=== PATIENT | male | born 1945 | race Caucasian/White ===

== ENCOUNTER 2021-08-03 17:39 | Inpatient (IN) ==
[2021-08-03] MEDS ORDERED: Furosemide 40 MG/4 ML VIAL IVP ONE (19:50)
[2021-08-03 20:30] LABS: Basophils # 0.1 K/mcL (0.0-0.2); Basophils % 0.2 %; Hematocrit 38.8 % (37.5-50.1); Hemoglobin 13.1 g/dL (12.9-16.9); Immature Granulocytes % 2.5 % (0-4); Lymphocytes # 1.5 K/mcL (0.6-4.6); Lymphocytes % 6.4 %; Mean Corpuscular HGB Conc 33.8 g/dL (31.6-35.5); Mean Corpuscular Hemoglobin 31.8 pg (28.0-33.3); Mean Corpuscular Volume 94.2 fL (83.0-100.0); Mean Platelet Volume 9.9 fL (9.4-12.4); Monocytes # 2.1 K/mcL (0.0-1.3); Monocytes % 9.1 %; Neutrophils # 18.6 K/mcL (1.6-8.9); Platelet Count 252 K/mcL (140-400); Red Blood Count 4.12 M/mcL (4.19-5.50); Red Cell Distribution Width 13.1 % (11.5-14.5); Segmented Neutrophils % 81.8 %; White Blood Count 22.7 K/mcL (4.3-11.1)
[2021-08-03 20:46] LABS: Alanine Aminotransferase 19 Units/L (7-52); Albumin 3.7 g/dL (3.5-5.7); Albumin/Globulin Ratio 1.1 (1.1-2.2); Alkaline Phosphatase 86 Units/L (34-104); Aspartate Amino Transferase 24 Units/L (13-39); BUN/Creatinine Ratio 25 (6-26); Bilirubin,Direct 1.4 mg/dL (0.0-0.2); Bilirubin,Indirect 1.6 mg/dL (0.0-1.0); Blood Urea Nitrogen 23 mg/dL (8-23); Calcium 9.2 mg/dL (8.6-10.3); Carbon Dioxide 30 mEq/L (23-29); Chloride 97 mEq/L (98-107); Globulin 3.5 g/dL (2.4-3.5); Glucose 169 mg/dL (70-105); Magnesium 1.7 mg/dL (1.6-2.6); Osmolality,Calculated 290 (280-300); Sodium 136 mEq/L (136-145); Total Protein 7.2 g/dL (6.4-8.9); Troponin I 0.03 ng/mL (< 0.04); eGFR For African Americans > 60 (> 60); eGFR For Non-African Americans > 60 (> 60)
[2021-08-03 21:40] LABS: Amorphous Sediment,Urine Few per hpf (None-Few); Bacteria,Urine Few per hpf (None-Few); Bilirubin,Urine Negative (Negative); Blood,Urine Small (Negative); Clarity,Urine Clear (Clear); Color,Urine Yellow (Yellow); Glucose,Urine (UA) Normal (Normal); Ketones,Urine Negative (Negative); Leukocyte Esterase,Urine Negative (Negative); Mucus,Urine Few per lpf (None-Few); Nitrite,Urine Negative (Negative); Protein,Urine 50 mg/dL (Neg-Trace); Specific Gravity,Urine 1.017 (1.010-1.025); Squamous Epithelial Cell,Urine Few per hpf (None-Few)
[2021-08-03 21:46] LABS: Influenza A PCR Negative (Negative); Influenza B PCR Negative (Negative); Resp. Syncytial Virus PCR Negative (Negative); SARS-CoV-2 by PCR (In House) Negative (Negative)
[2021-08-03] MEDS ORDERED: Piperacillin/Tazobactam 3.375 GM in Water for inj. (sterile) 20 ML IVP ONE (22:05)
[2021-08-03] MEDS ORDERED: Naloxone 0.4 MG/ML INJ IVP PRN (22:24)
[2021-08-03] MEDS ORDERED: Ondansetron 4 MG/2 ML VIAL IVP PRN (22:37)
[2021-08-03] MEDS ORDERED: *HR* Promethazine 25 MG/ML VIAL IM PRN (22:37)
[2021-08-03] MEDS ORDERED: Melatonin 3 MG TABLET PO PRN (22:37)
[2021-08-03] MEDS ORDERED: Vancomycin 1,750 MG/517.5 ML IV.SOLN IVPB ONE (23:00)
[2021-08-04 06:15] LABS: Basophils % 0.2 %; Eosinophils # 0.1 K/mcL (0.0-0.6); Eosinophils % 0.3 %; Hematocrit 36.7 % (37.5-50.1); Hemoglobin 12.4 g/dL (12.9-16.9); Immature Granulocytes % 2.9 % (0-4); Lymphocytes # 1.6 K/mcL (0.6-4.6); Lymphocytes % 8.5 %; Mean Corpuscular HGB Conc 33.8 g/dL (31.6-35.5); Mean Corpuscular Volume 94.6 fL (83.0-100.0); Monocytes # 1.8 K/mcL (0.0-1.3); Monocytes % 9.6 %; Neutrophils # 14.3 K/mcL (1.6-8.9); Platelet Count 212 K/mcL (140-400); Red Blood Count 3.88 M/mcL (4.19-5.50); Red Cell Distribution Width 13.1 % (11.5-14.5); Segmented Neutrophils % 78.5 %; White Blood Count 18.2 K/mcL (4.3-11.1)
[2021-08-04 06:28] LABS: Prothrombin Time 22.1 Seconds (9.4-12.1)
[2021-08-04 06:34] LABS: BUN/Creatinine Ratio 26 (6-26); Blood Urea Nitrogen 21 mg/dL (8-23); Calcium 8.9 mg/dL (8.6-10.3); Carbon Dioxide 30 mEq/L (23-29); Chloride 100 mEq/L (98-107); Glucose 150 mg/dL (70-105); Magnesium 1.7 mg/dL (1.6-2.6); Osmolality,Calculated 288 (280-300); Potassium 3.5 mEq/L (3.5-5.1); Sodium 136 mEq/L (136-145); eGFR For African Americans > 60 (> 60); eGFR For Non-African Americans > 60 (> 60)
[2021-08-04] MEDS ORDERED: Perflutren Lipid Microsphere 1.3 ML in 0.9 % Sodium Chloride 8.7 ML IVP PRN (08:09)
[2021-08-04] MEDS ORDERED: *HR* OxyCODONE Immed Rel 5 MG TABLET PO PRN (08:10)
[2021-08-04] MEDS: Vitamin B Complex/Vit C/Vit E 1 EACH TABLET PO SCH (08:17)
[2021-08-04] MEDS: Furosemide 40 MG/4 ML VIAL IVP SCH ×2 (08:17→18:18)
[2021-08-04] MEDS: Thiamine (B-1) 100 MG TABLET PO SCH (08:17)
[2021-08-04] MEDS: Piperacillin/Tazobactam 3.375 GM in 0.9 % Sodium Chloride Mini Bag 100 ML IVPB SCH ×2 (08:17→18:20)
[2021-08-04] MEDS: Folic Acid 1 MG TABLET PO SCH (08:17)
[2021-08-04] MEDS: Metoprolol XL (24 HR) Succ 50 MG TAB.ER.24H PO SCH (08:40)
[2021-08-04] MEDS: Aspirin Enteric Coated 81 MG Tablet PO SCH (08:40)
[2021-08-04] MEDS: Vancomycin 1,500 MG/265 ML IV.SOLN IVPB SCH ×2 (13:16→23:02)
[2021-08-04] MEDS ORDERED: tiZANidine 4 MG TABLET PO PRN (13:55)
[2021-08-04] MEDS ORDERED: *HR* Warfarin 5 MG TABLET PO SCH (14:00)
[2021-08-04] MEDS: [UNRECOGNIZED DRUG - OTHER] IT SCH (16:18)
[2021-08-04] MEDS ORDERED: Warfarin perPT PO PRN (18:00)
[2021-08-04] MEDS ORDERED: *HR* Warfarin 5 MG TABLET PO ONE (18:00)
[2021-08-05] MEDS: Piperacillin/Tazobactam 3.375 GM in 0.9 % Sodium Chloride Mini Bag 100 ML IVPB SCH ×3 (00:45→17:26)
[2021-08-05 03:05] LABS: Basophils % 0.2 %; Eosinophils # 0.1 K/mcL (0.0-0.6); Eosinophils % 0.7 %; Hematocrit 35.9 % (37.5-50.1); Hemoglobin 12.2 g/dL (12.9-16.9); Immature Granulocytes % 1.5 % (0-4); Lymphocytes # 1.8 K/mcL (0.6-4.6); Lymphocytes % 10.3 %; Mean Corpuscular Hemoglobin 32.1 pg (28.0-33.3); Mean Corpuscular Volume 94.5 fL (83.0-100.0); Monocytes # 1.6 K/mcL (0.0-1.3); Monocytes % 9.3 %; Neutrophils # 13.8 K/mcL (1.6-8.9); Platelet Count 260 K/mcL (140-400); Red Cell Distribution Width 12.7 % (11.5-14.5); White Blood Count 17.7 K/mcL (4.3-11.1)
[2021-08-05 03:20] LABS: BUN/Creatinine Ratio 22 (6-26); Blood Urea Nitrogen 15 mg/dL (8-23); C-Reactive Protein 268 mg/L (Less than 10); Calcium 8.4 mg/dL (8.6-10.3); Carbon Dioxide 26 mEq/L (23-29); Chloride 98 mEq/L (98-107); Glucose 127 mg/dL (70-105); Magnesium 1.5 mg/dL (1.6-2.6); Osmolality,Calculated 282 (280-300); Phosphorous 3.1 mg/dL (2.7-4.5); Potassium 3.3 mEq/L (3.5-5.1); Sodium 135 mEq/L (136-145); eGFR For African Americans > 60 (> 60); eGFR For Non-African Americans > 60 (> 60)
[2021-08-05 03:25] LABS: INR 2.2
[2021-08-05] MEDS: Furosemide 40 MG/4 ML VIAL IVP SCH ×2 (09:56→17:26)
[2021-08-05] MEDS: Folic Acid 1 MG TABLET PO SCH (09:57)
[2021-08-05] MEDS: Metoprolol XL (24 HR) Succ 50 MG TAB.ER.24H PO SCH (09:57)
[2021-08-05] MEDS: Vitamin B Complex/Vit C/Vit E 1 EACH TABLET PO SCH (09:57)
[2021-08-05] MEDS: Aspirin Enteric Coated 81 MG Tablet PO SCH (09:58)
[2021-08-05] MEDS: Thiamine (B-1) 100 MG TABLET PO SCH (09:58)
[2021-08-05] MEDS: Vancomycin 1,500 MG/265 ML IV.SOLN IVPB SCH ×2 (13:52→22:40)
[2021-08-05] MEDS: [UNRECOGNIZED DRUG - OTHER] IT SCH (13:53)
[2021-08-05] MEDS ORDERED: *HR* Warfarin 4 MG TABLET PO ONE (18:00)
[2021-08-05] MEDS: Acetaminophen 325 MG TABLET PO PRN (23:03)
[2021-08-06] MEDS: Piperacillin/Tazobactam 3.375 GM in 0.9 % Sodium Chloride Mini Bag 100 ML IVPB SCH ×3 (00:56→17:04)
[2021-08-06 02:44] LABS: Basophils # 0.1 K/mcL (0.0-0.2); Basophils % 0.3 %; Eosinophils # 0.1 K/mcL (0.0-0.6); Eosinophils % 0.7 %; Hematocrit 37.6 % (37.5-50.1); Hemoglobin 12.9 g/dL (12.9-16.9); Immature Granulocytes % 1.4 % (0-4); Lymphocytes # 2.3 K/mcL (0.6-4.6); Lymphocytes % 12.2 %; Mean Corpuscular HGB Conc 34.3 g/dL (31.6-35.5); Mean Corpuscular Hemoglobin 32.3 pg (28.0-33.3); Mean Corpuscular Volume 94.2 fL (83.0-100.0); Mean Platelet Volume 9.8 fL (9.4-12.4); Monocytes # 2.1 K/mcL (0.0-1.3); Monocytes % 10.9 %; Neutrophils # 14.2 K/mcL (1.6-8.9); Platelet Count 318 K/mcL (140-400); Red Blood Count 3.99 M/mcL (4.19-5.50); Red Cell Distribution Width 12.7 % (11.5-14.5); Segmented Neutrophils % 74.5 %
[2021-08-06 02:53] LABS: INR 3.1; Prothrombin Time 33.9 Seconds (9.4-12.1)
[2021-08-06 02:57] LABS: BUN/Creatinine Ratio 18 (6-26); Blood Urea Nitrogen 14 mg/dL (8-23); Calcium 8.5 mg/dL (8.6-10.3); Carbon Dioxide 25 mEq/L (23-29); Chloride 97 mEq/L (98-107); Glucose 145 mg/dL (70-105); Magnesium 1.4 mg/dL (1.6-2.6); Osmolality,Calculated 281 (280-300); Phosphorous 2.9 mg/dL (2.7-4.5); Potassium 3.3 mEq/L (3.5-5.1); Sodium 134 mEq/L (136-145); eGFR For African Americans > 60 (> 60); eGFR For Non-African Americans > 60 (> 60)
[2021-08-06 02:58] LABS: Albumin 3.5 g/dL (3.5-5.7); Albumin/Globulin Ratio 1.1 (1.1-2.2); Bilirubin,Direct 0.8 mg/dL (0.0-0.2); Bilirubin,Total 1.8 mg/dL (0.3-1.0); Globulin 3.2 g/dL (2.4-3.5); Total Protein 6.7 g/dL (6.4-8.9)
[2021-08-06] MEDS: Furosemide 40 MG/4 ML VIAL IVP SCH ×2 (08:31→17:04)
[2021-08-06] MEDS: Thiamine (B-1) 100 MG TABLET PO SCH (08:33)
[2021-08-06] MEDS: Vitamin B Complex/Vit C/Vit E 1 EACH TABLET PO SCH (08:33)
[2021-08-06] MEDS: Aspirin Enteric Coated 81 MG Tablet PO SCH (08:34)
[2021-08-06] MEDS: Folic Acid 1 MG TABLET PO SCH (08:34)
[2021-08-06] MEDS: Metoprolol XL (24 HR) Succ 50 MG TAB.ER.24H PO SCH (08:36)
[2021-08-06] MEDS: Acetaminophen 325 MG TABLET PO PRN (11:39)
[2021-08-06] MEDS: Vancomycin 1,500 MG/265 ML IV.SOLN IVPB SCH ×2 (13:24→22:22)
[2021-08-06] MEDS: [UNRECOGNIZED DRUG - OTHER] IT SCH (13:25)
[2021-08-06] MEDS ORDERED: *HR* Warfarin 2 MG TABLET PO ONE (18:00)
[2021-08-06 20:45] LABS: Estimated Average Glucose 154 mg/dl
[2021-08-07] MEDS: Piperacillin/Tazobactam 3.375 GM in 0.9 % Sodium Chloride Mini Bag 100 ML IVPB SCH ×2 (00:11→10:32)
[2021-08-07 04:49] LABS: Basophils # 0.1 K/mcL (0.0-0.2); Basophils % 0.3 %; Eosinophils # 0.2 K/mcL (0.0-0.6); Eosinophils % 1.5 %; Hematocrit 34.7 % (37.5-50.1); Hemoglobin 11.6 g/dL (12.9-16.9); Immature Granulocytes % 1.3 % (0-4); Lymphocytes # 1.8 K/mcL (0.6-4.6); Lymphocytes % 11.9 %; Mean Corpuscular HGB Conc 33.4 g/dL (31.6-35.5); Mean Corpuscular Hemoglobin 31.1 pg (28.0-33.3); Mean Platelet Volume 9.4 fL (9.4-12.4); Monocytes # 1.8 K/mcL (0.0-1.3); Monocytes % 11.9 %; Platelet Count 303 K/mcL (140-400); Red Blood Count 3.73 M/mcL (4.19-5.50); Red Cell Distribution Width 12.7 % (11.5-14.5); Segmented Neutrophils % 73.1 %; White Blood Count 15.1 K/mcL (4.3-11.1)
[2021-08-07 05:03] LABS: INR 4.1
[2021-08-07 05:08] LABS: Calcium 8.2 mg/dL (8.6-10.3); Magnesium 1.7 mg/dL (1.6-2.6); Phosphorous 3.7 mg/dL (2.7-4.5); Potassium 3.4 mEq/L (3.5-5.1)
[2021-08-07 05:15] LABS: Prothrombin Time 44.7 Seconds (9.4-12.1)
[2021-08-07] MEDS ORDERED: Furosemide 40 MG TABLET PO SCH (08:00)
[2021-08-07] MEDS: Folic Acid 1 MG TABLET PO SCH (10:33)
[2021-08-07] MEDS: Aspirin Enteric Coated 81 MG Tablet PO SCH (10:34)
[2021-08-07] MEDS: Vitamin B Complex/Vit C/Vit E 1 EACH TABLET PO SCH (10:34)
[2021-08-07] MEDS: Thiamine (B-1) 100 MG TABLET PO SCH (10:34)
[2021-08-07] MEDS: Metoprolol XL (24 HR) Succ 50 MG TAB.ER.24H PO SCH (10:34)
[2021-08-07] MEDS: Acetaminophen 325 MG TABLET PO PRN (10:47)
[2021-08-07 12:06] LABS: Uric Acid 6.3 mg/dL (2.3-7.6)
[2021-08-07] MEDS ORDERED: 0.9 % Sodium Chloride 1,000 ML IVC SCH (12:15)
[2021-08-07] MEDS ORDERED: D5% in Water 1,000 ML IVC PRN (12:43)
[2021-08-07] MEDS ORDERED: *HR* Dextrose 50 % in Water (Syg) 50 ML SYRINGE IVP PRN (12:43)
[2021-08-07] MEDS ORDERED: Dextrose Gel 15 GM/37.5 ML TUBE PO PRN ×2 (12:43)
[2021-08-07] MEDS: Insulin LISPRO 300 UNITS/3 ML VIAL SUBQ SCH ×3 (14:00→20:26)
[2021-08-07 14:13] LABS: Hepatitis A Antibody IgM Nonreactive (Nonreactive); Hepatitis B Core IgM Nonreactive (Nonreactive); Hepatitis C Virus Antibody Nonreactive (Nonreactive)
[2021-08-07 14:24] LABS: Hepatitis B Surface Antigen Nonreactive (Nonreactive)
[2021-08-07] MEDS: [UNRECOGNIZED DRUG - OTHER] IT SCH (14:32)
[2021-08-07] MEDS: ceFAZolin 1,000 MG in 0.9 % Sodium Chloride Mini Bag 100 ML IVPB SCH (14:32)
[2021-08-07 15:12] LABS: Calcium 8.7 mg/dL (8.6-10.3); Potassium 3.8 mEq/L (3.5-5.1)
[2021-08-08 01:04] LABS: INR 3.9
[2021-08-08 01:47] LABS: Complement C3 136 mg/dL (87-200)
[2021-08-08] MEDS: ceFAZolin 1,000 MG in 0.9 % Sodium Chloride Mini Bag 100 ML IVPB SCH ×2 (02:06→13:58)
[2021-08-08] MEDS: Insulin LISPRO 300 UNITS/3 ML VIAL SUBQ SCH ×4 (07:17→22:21)
[2021-08-08] MEDS: Thiamine (B-1) 100 MG TABLET PO SCH (07:33)
[2021-08-08] MEDS: Folic Acid 1 MG TABLET PO SCH (07:33)
[2021-08-08] MEDS: Metoprolol XL (24 HR) Succ 50 MG TAB.ER.24H PO SCH (07:33)
[2021-08-08] MEDS: Vitamin B Complex/Vit C/Vit E 1 EACH TABLET PO SCH (07:33)
[2021-08-08] MEDS: Aspirin Enteric Coated 81 MG Tablet PO SCH (07:34)
[2021-08-08 11:07] LABS: Basophils # 0.1 K/mcL (0.0-0.2); Basophils % 0.5 %; Eosinophils # 0.2 K/mcL (0.0-0.6); Eosinophils % 1.1 %; Hematocrit 37.2 % (37.5-50.1); Hemoglobin 12.3 g/dL (12.9-16.9); Immature Granulocytes % 3.8 % (0-4); Lymphocytes # 1.3 K/mcL (0.6-4.6); Lymphocytes % 8.9 %; Mean Corpuscular HGB Conc 33.1 g/dL (31.6-35.5); Mean Corpuscular Hemoglobin 31.9 pg (28.0-33.3); Mean Corpuscular Volume 96.6 fL (83.0-100.0); Mean Platelet Volume 9.8 fL (9.4-12.4); Monocytes # 1.6 K/mcL (0.0-1.3); Monocytes % 10.7 %; Neutrophils # 10.9 K/mcL (1.6-8.9); Platelet Count 351 K/mcL (140-400); Red Blood Count 3.85 M/mcL (4.19-5.50); Red Cell Distribution Width 12.9 % (11.5-14.5); White Blood Count 14.5 K/mcL (4.3-11.1)
[2021-08-08 11:38] LABS: Calcium 8.8 mg/dL (8.6-10.3); Magnesium 1.8 mg/dL (1.6-2.6); Phosphorous 3.5 mg/dL (2.7-4.5); Potassium 3.8 mEq/L (3.5-5.1)
[2021-08-08] MEDS ORDERED: 0.9 % Sodium Chloride 1,000 ML IVC SCH (12:45)
[2021-08-08] MEDS: [UNRECOGNIZED DRUG - OTHER] IT SCH (13:55)
[2021-08-09] MEDS: ceFAZolin 1,000 MG in 0.9 % Sodium Chloride Mini Bag 100 ML IVPB SCH ×2 (03:56→15:19)
[2021-08-09 05:54] LABS: Basophils # 0.1 K/mcL (0.0-0.2); Basophils % 0.4 %; Eosinophils # 0.4 K/mcL (0.0-0.6); Eosinophils % 2.3 %; Hematocrit 35.2 % (37.5-50.1); Hemoglobin 11.9 g/dL (12.9-16.9); Lymphocytes # 1.5 K/mcL (0.6-4.6); Lymphocytes % 9.3 %; Mean Corpuscular HGB Conc 33.8 g/dL (31.6-35.5); Mean Corpuscular Hemoglobin 31.9 pg (28.0-33.3); Mean Corpuscular Volume 94.4 fL (83.0-100.0); Monocytes # 1.6 K/mcL (0.0-1.3); Monocytes % 9.8 %; Neutrophils # 12.2 K/mcL (1.6-8.9); Nucleated Red Blood Cells 0.3 /100 WBC (0); Platelet Count 348 K/mcL (140-400); Red Blood Count 3.73 M/mcL (4.19-5.50); Red Cell Distribution Width 12.7 % (11.5-14.5); Segmented Neutrophils % 74.2 %; White Blood Count 16.5 K/mcL (4.3-11.1)
[2021-08-09 06:05] LABS: INR 3.5; Prothrombin Time 38.9 Seconds (9.4-12.1)
[2021-08-09 06:08] LABS: Calcium 8.7 mg/dL (8.6-10.3); Magnesium 1.8 mg/dL (1.6-2.6); Phosphorous 2.8 mg/dL (2.7-4.5); Potassium 3.7 mEq/L (3.5-5.1)
[2021-08-09] MEDS: Insulin LISPRO 300 UNITS/3 ML VIAL SUBQ SCH ×4 (07:41→19:52)
[2021-08-09] MEDS: Vitamin B Complex/Vit C/Vit E 1 EACH TABLET PO SCH (09:36)
[2021-08-09] MEDS: Thiamine (B-1) 100 MG TABLET PO SCH (09:36)
[2021-08-09] MEDS: Metoprolol XL (24 HR) Succ 50 MG TAB.ER.24H PO SCH (09:36)
[2021-08-09] MEDS: Aspirin Enteric Coated 81 MG Tablet PO SCH (09:36)
[2021-08-09] MEDS: Folic Acid 1 MG TABLET PO SCH (09:36)
[2021-08-09] MEDS: 0.9 % Sodium Chloride 1,000 ML IVC SCH (12:33)
[2021-08-09] MEDS ORDERED: *HR* Warfarin 2 MG TABLET PO ONE (18:00)
[2021-08-09] MEDS: [UNRECOGNIZED DRUG - OTHER] IT SCH (18:21)
[2021-08-09] MEDS: amLODIPine 5 MG TABLET PO SCH (18:36)
[2021-08-09] MEDS: Linezolid 600 MG TABLET PO SCH (21:10)
[2021-08-10 05:58] LABS: Basophils # 0.1 K/mcL (0.0-0.2); Basophils % 0.3 %; Eosinophils # 0.1 K/mcL (0.0-0.6); Eosinophils % 0.7 %; Immature Granulocytes % 2.5 % (0-4); Lymphocytes # 1.8 K/mcL (0.6-4.6); Lymphocytes % 9.2 %; Mean Corpuscular HGB Conc 33.3 g/dL (31.6-35.5); Mean Corpuscular Hemoglobin 31.2 pg (28.0-33.3); Mean Corpuscular Volume 93.5 fL (83.0-100.0); Mean Platelet Volume 9.8 fL (9.4-12.4); Monocytes # 1.5 K/mcL (0.0-1.3); Neutrophils # 15.2 K/mcL (1.6-8.9); Platelet Count 332 K/mcL (140-400); Red Blood Count 3.21 M/mcL (4.19-5.50); Red Cell Distribution Width 12.6 % (11.5-14.5); Segmented Neutrophils % 79.3 %; White Blood Count 19.2 K/mcL (4.3-11.1)
[2021-08-10 06:04] LABS: INR 3.1; Prothrombin Time 34.2 Seconds (9.4-12.1)
[2021-08-10 06:19] LABS: Calcium 8.3 mg/dL (8.6-10.3); Magnesium 1.9 mg/dL (1.6-2.6); Phosphorous 3.2 mg/dL (2.7-4.5)
[2021-08-10] MEDS: Insulin LISPRO 300 UNITS/3 ML VIAL SUBQ SCH ×4 (09:54→20:37)
[2021-08-10] MEDS: Linezolid 600 MG TABLET PO SCH ×2 (10:02→20:36)
[2021-08-10] MEDS: amLODIPine 5 MG TABLET PO SCH (10:02)
[2021-08-10] MEDS: Vitamin B Complex/Vit C/Vit E 1 EACH TABLET PO SCH (10:02)
[2021-08-10] MEDS: Thiamine (B-1) 100 MG TABLET PO SCH (10:03)
[2021-08-10] MEDS: Folic Acid 1 MG TABLET PO SCH (10:03)
[2021-08-10] MEDS: Aspirin Enteric Coated 81 MG Tablet PO SCH (10:03)
[2021-08-10] MEDS: Metoprolol XL (24 HR) Succ 50 MG TAB.ER.24H PO SCH (10:03)
[2021-08-10] MEDS: 0.9 % Sodium Chloride 1,000 ML IVC SCH ×2 (10:14→11:53)
[2021-08-10 11:23] LABS: ANA IgG by ELISA NONE DETECTED (None Detected)
[2021-08-10] MEDS: [UNRECOGNIZED DRUG - OTHER] IT SCH (11:54)
[2021-08-10] MEDS ORDERED: amLODIPine 5 MG TABLET PO ONE (12:45)
[2021-08-10] MEDS ORDERED: Pantoprazole 40 MG VIAL IVP ONE (13:04)
[2021-08-10] MEDS ORDERED: Metoclopramide 10 MG/2 ML VIAL IVP STA (13:08)
[2021-08-10] MEDS: Pantoprazole 40 MG in 0.9 % Sodium Chloride Mini Bag 100 ML IVC SCH ×3 (15:42→23:29)
[2021-08-10] MEDS ORDERED: Pantoprazole 40 MG VIAL IVP SCH (18:00)
[2021-08-11 01:03] LABS: Basophils # 0.1 K/mcL (0.0-0.2); Basophils % 0.3 %; Eosinophils # 0.2 K/mcL (0.0-0.6); Eosinophils % 1.1 %; Hematocrit 28.2 % (37.5-50.1); Hemoglobin 9.6 g/dL (12.9-16.9); Immature Granulocytes % 2.3 % (0-4); Lymphocytes # 1.8 K/mcL (0.6-4.6); Lymphocytes % 9.6 %; Mean Corpuscular Hemoglobin 32.1 pg (28.0-33.3); Mean Corpuscular Volume 94.3 fL (83.0-100.0); Mean Platelet Volume 9.7 fL (9.4-12.4); Monocytes # 1.3 K/mcL (0.0-1.3); Monocytes % 6.9 %; Neutrophils # 14.6 K/mcL (1.6-8.9); Platelet Count 345 K/mcL (140-400); Red Blood Count 2.99 M/mcL (4.19-5.50); Red Cell Distribution Width 12.7 % (11.5-14.5); Segmented Neutrophils % 79.8 %; White Blood Count 18.2 K/mcL (4.3-11.1)
[2021-08-11 01:17] LABS: Calcium 8.5 mg/dL (8.6-10.3); INR 2.9; Potassium 3.5 mEq/L (3.5-5.1)
[2021-08-11] MEDS: Pantoprazole 40 MG in 0.9 % Sodium Chloride Mini Bag 100 ML IVC SCH ×4 (04:44→20:55)
[2021-08-11] MEDS: Insulin LISPRO 300 UNITS/3 ML VIAL SUBQ SCH ×4 (09:38→20:56)
[2021-08-11] MEDS: Linezolid 600 MG TABLET PO SCH ×2 (10:10→20:55)
[2021-08-11] MEDS: Vitamin B Complex/Vit C/Vit E 1 EACH TABLET PO SCH (10:10)
[2021-08-11] MEDS: Thiamine (B-1) 100 MG TABLET PO SCH (10:10)
[2021-08-11] MEDS: Aspirin Enteric Coated 81 MG Tablet PO SCH (10:10)
[2021-08-11] MEDS: amLODIPine 5 MG TABLET PO SCH (10:10)
[2021-08-11] MEDS: Folic Acid 1 MG TABLET PO SCH (10:11)
[2021-08-11] MEDS: Metoprolol XL (24 HR) Succ 50 MG TAB.ER.24H PO SCH (10:11)
[2021-08-11 11:16] LABS: Serine Protease-3 Antibody 2 AU/mL (0-19)
[2021-08-11] MEDS: [UNRECOGNIZED DRUG - OTHER] IT SCH (18:29)
[2021-08-12] MEDS: Pantoprazole 40 MG in 0.9 % Sodium Chloride Mini Bag 100 ML IVC SCH ×5 (01:18→20:16)
[2021-08-12 04:33] LABS: Basophils % 0.2 %; Eosinophils # 0.2 K/mcL (0.0-0.6); Eosinophils % 1.2 %; Hematocrit 26.9 % (37.5-50.1); Hemoglobin 8.9 g/dL (12.9-16.9); Immature Granulocytes % 1.6 % (0-4); Lymphocytes # 1.5 K/mcL (0.6-4.6); Lymphocytes % 8.3 %; Mean Corpuscular HGB Conc 33.1 g/dL (31.6-35.5); Mean Corpuscular Hemoglobin 31.1 pg (28.0-33.3); Mean Corpuscular Volume 94.1 fL (83.0-100.0); Mean Platelet Volume 9.7 fL (9.4-12.4); Monocytes # 1.2 K/mcL (0.0-1.3); Monocytes % 6.4 %; Neutrophils # 14.7 K/mcL (1.6-8.9); Platelet Count 306 K/mcL (140-400); Red Blood Count 2.86 M/mcL (4.19-5.50); Red Cell Distribution Width 12.6 % (11.5-14.5); Segmented Neutrophils % 82.3 %; White Blood Count 17.9 K/mcL (4.3-11.1)
[2021-08-12 04:35] LABS: Calcium 8.3 mg/dL (8.6-10.3); Potassium 3.5 mEq/L (3.5-5.1)
[2021-08-12 05:09] LABS: Alpha 2 Globulin (PEP) 0.88 g/dL (0.48-1.05)
[2021-08-12] MEDS: Insulin LISPRO 300 UNITS/3 ML VIAL SUBQ SCH ×4 (08:20→20:26)
[2021-08-12] MEDS ORDERED: Lidocaine -MPF 2% 2 ML VIAL ONE (08:29)
[2021-08-12] MEDS ORDERED: *HR* Propofol 200 MG/20 ML VIAL IVP ONE ×2 (08:30→11:06)
[2021-08-12] MEDS ORDERED: 0.9 % Sodium Chloride 1,000 ML IVC SCH (09:15)
[2021-08-12] MEDS: Folic Acid 1 MG TABLET PO SCH (09:52)
[2021-08-12] MEDS: Aspirin Enteric Coated 81 MG Tablet PO SCH (09:52)
[2021-08-12] MEDS: Vitamin B Complex/Vit C/Vit E 1 EACH TABLET PO SCH (09:52)
[2021-08-12] MEDS: Thiamine (B-1) 100 MG TABLET PO SCH (09:52)
[2021-08-12 10:27] LABS: IFE Reflexed NOT DONE
[2021-08-12] MEDS ORDERED: Ringers Solution, Lactated 1,000 ML IVC SCH (10:30)
[2021-08-12] MEDS ORDERED: *HR* EPINEPHrine 1 MG/10 ML SYRINGE IVP ONE (11:06)
[2021-08-12] MEDS: Metoprolol XL (24 HR) Succ 50 MG TAB.ER.24H PO SCH (11:41)
[2021-08-12] MEDS: amLODIPine 5 MG TABLET PO SCH (11:41)
[2021-08-12] MEDS: Linezolid 600 MG TABLET PO SCH ×2 (11:41→20:16)
[2021-08-12 12:44] LABS: Hemoglobin 9.4 g/dL (12.9-16.9)
[2021-08-12] MEDS: [UNRECOGNIZED DRUG - OTHER] IT SCH (15:09)
[2021-08-13] MEDS: Pantoprazole 40 MG in 0.9 % Sodium Chloride Mini Bag 100 ML IVC SCH ×3 (01:31→16:03)
[2021-08-13 05:00] LABS: Basophils % 0.2 %; Eosinophils # 0.1 K/mcL (0.0-0.6); Eosinophils % 0.6 %; Hematocrit 25.1 % (37.5-50.1); Hemoglobin 8.4 g/dL (12.9-16.9); Immature Granulocytes % 1.3 % (0-4); Lymphocytes # 1.4 K/mcL (0.6-4.6); Lymphocytes % 7.6 %; Mean Corpuscular HGB Conc 33.5 g/dL (31.6-35.5); Mean Corpuscular Hemoglobin 31.8 pg (28.0-33.3); Mean Corpuscular Volume 95.1 fL (83.0-100.0); Mean Platelet Volume 9.7 fL (9.4-12.4); Monocytes % 5.2 %; Neutrophils # 16.1 K/mcL (1.6-8.9); Platelet Count 357 K/mcL (140-400); Red Blood Count 2.64 M/mcL (4.19-5.50); Red Cell Distribution Width 12.7 % (11.5-14.5); Segmented Neutrophils % 85.1 %; White Blood Count 18.9 K/mcL (4.3-11.1)
[2021-08-13 05:06] LABS: INR 3.3; Prothrombin Time 36.9 Seconds (9.4-12.1)
[2021-08-13 05:19] LABS: Calcium 8.5 mg/dL (8.6-10.3); Potassium 3.6 mEq/L (3.5-5.1)
[2021-08-13] MEDS: Insulin LISPRO 300 UNITS/3 ML VIAL SUBQ SCH ×4 (07:18→20:54)
[2021-08-13] MEDS: amLODIPine 5 MG TABLET PO SCH (08:05)
[2021-08-13] MEDS: Thiamine (B-1) 100 MG TABLET PO SCH (08:05)
[2021-08-13] MEDS: Metoprolol XL (24 HR) Succ 50 MG TAB.ER.24H PO SCH (08:05)
[2021-08-13] MEDS: Vitamin B Complex/Vit C/Vit E 1 EACH TABLET PO SCH (08:05)
[2021-08-13] MEDS: Folic Acid 1 MG TABLET PO SCH (08:06)
[2021-08-13] MEDS: Aspirin Enteric Coated 81 MG Tablet PO SCH (08:06)
[2021-08-13] MEDS: Linezolid 600 MG TABLET PO SCH ×2 (08:08→20:52)
[2021-08-13] MEDS ORDERED: Lidocaine -MPF 2% 5 ML VIAL ONE (11:32)
[2021-08-13] MEDS ORDERED: *HR* Propofol 200 MG/20 ML VIAL IVP ONE (11:32)
[2021-08-13] MEDS: [UNRECOGNIZED DRUG - OTHER] IT SCH (11:36)
[2021-08-13 15:13] LABS: Hematocrit 28.1 % (37.5-50.1)
[2021-08-14 06:23] LABS: Hematocrit 26.2 % (37.5-50.1); Hemoglobin 8.7 g/dL (12.9-16.9); Mean Corpuscular HGB Conc 33.2 g/dL (31.6-35.5); Mean Corpuscular Hemoglobin 31.5 pg (28.0-33.3); Mean Corpuscular Volume 94.9 fL (83.0-100.0); Mean Platelet Volume 9.2 fL (9.4-12.4); Platelet Count 355 K/mcL (140-400); Red Blood Count 2.76 M/mcL (4.19-5.50); Red Cell Distribution Width 12.7 % (11.5-14.5); White Blood Count 14.9 K/mcL (4.3-11.1)
[2021-08-14 06:27] LABS: INR 3.2; Prothrombin Time 35.8 Seconds (9.4-12.1)
[2021-08-14 06:38] LABS: Calcium 8.6 mg/dL (8.6-10.3); Potassium 3.5 mEq/L (3.5-5.1)
[2021-08-14] MEDS: Insulin LISPRO 300 UNITS/3 ML VIAL SUBQ SCH ×4 (09:27→22:11)
[2021-08-14] MEDS: Vitamin B Complex/Vit C/Vit E 1 EACH TABLET PO SCH (10:14)
[2021-08-14] MEDS: amLODIPine 5 MG TABLET PO SCH (10:14)
[2021-08-14] MEDS: Linezolid 600 MG TABLET PO SCH ×2 (10:14→22:11)
[2021-08-14] MEDS: Thiamine (B-1) 100 MG TABLET PO SCH (10:15)
[2021-08-14] MEDS: Folic Acid 1 MG TABLET PO SCH (10:15)
[2021-08-14] MEDS: Aspirin Enteric Coated 81 MG Tablet PO SCH (10:15)
[2021-08-14] MEDS: Metoprolol XL (24 HR) Succ 50 MG TAB.ER.24H PO SCH (10:15)
[2021-08-14] MEDS: [UNRECOGNIZED DRUG - OTHER] IT SCH (15:17)
[2021-08-15 06:40] LABS: Hematocrit 24.8 % (37.5-50.1); Hemoglobin 8.2 g/dL (12.9-16.9); Mean Corpuscular HGB Conc 33.1 g/dL (31.6-35.5); Mean Corpuscular Hemoglobin 31.3 pg (28.0-33.3); Mean Corpuscular Volume 94.7 fL (83.0-100.0); Mean Platelet Volume 9.1 fL (9.4-12.4); Platelet Count 374 K/mcL (140-400); Red Blood Count 2.62 M/mcL (4.19-5.50); Red Cell Distribution Width 12.7 % (11.5-14.5); White Blood Count 13.6 K/mcL (4.3-11.1)
[2021-08-15 06:45] LABS: INR 2.5
[2021-08-15 06:55] LABS: Calcium 8.4 mg/dL (8.6-10.3); Potassium 3.4 mEq/L (3.5-5.1)
[2021-08-15] MEDS: Insulin LISPRO 300 UNITS/3 ML VIAL SUBQ SCH ×4 (07:42→20:43)
[2021-08-15] MEDS: Vitamin B Complex/Vit C/Vit E 1 EACH TABLET PO SCH (08:56)
[2021-08-15] MEDS: amLODIPine 5 MG TABLET PO SCH (08:56)
[2021-08-15] MEDS: Aspirin Enteric Coated 81 MG Tablet PO SCH (08:56)
[2021-08-15] MEDS: Folic Acid 1 MG TABLET PO SCH (08:56)
[2021-08-15] MEDS: Linezolid 600 MG TABLET PO SCH ×2 (08:56→20:46)
[2021-08-15] MEDS: Metoprolol XL (24 HR) Succ 50 MG TAB.ER.24H PO SCH (08:56)
[2021-08-15] MEDS: Thiamine (B-1) 100 MG TABLET PO SCH (08:56)
[2021-08-15] MEDS: [UNRECOGNIZED DRUG - OTHER] IT SCH (15:31)
[2021-08-15] MEDS: Furosemide 40 MG TABLET PO SCH (16:09)
[2021-08-15] MEDS: Albumin 25% 25gram/100mL 25 GM/100 ML IV.SOLN IVPB SCH (23:32)
[2021-08-16 01:22] LABS: Hematocrit 24.8 % (37.5-50.1); Hemoglobin 8.4 g/dL (12.9-16.9); Mean Corpuscular HGB Conc 33.9 g/dL (31.6-35.5); Mean Corpuscular Hemoglobin 31.6 pg (28.0-33.3); Mean Corpuscular Volume 93.2 fL (83.0-100.0); Mean Platelet Volume 9.2 fL (9.4-12.4); Platelet Count 384 K/mcL (140-400); Red Blood Count 2.66 M/mcL (4.19-5.50); Red Cell Distribution Width 12.6 % (11.5-14.5); White Blood Count 14.1 K/mcL (4.3-11.1)
[2021-08-16 01:33] LABS: INR 2.3; Prothrombin Time 25.1 Seconds (9.4-12.1)
[2021-08-16 01:45] LABS: Calcium 8.6 mg/dL (8.6-10.3); Potassium 3.7 mEq/L (3.5-5.1)
[2021-08-16] MEDS: [UNRECOGNIZED DRUG - OTHER] IT SCH (07:37)
[2021-08-16] MEDS: Insulin LISPRO 300 UNITS/3 ML VIAL SUBQ SCH ×3 (08:05→20:25)
[2021-08-16] MEDS: Albumin 25% 25gram/100mL 25 GM/100 ML IV.SOLN IVPB SCH ×2 (08:37→19:00)
[2021-08-16] MEDS: Aspirin Enteric Coated 81 MG Tablet PO SCH (08:38)
[2021-08-16] MEDS: Thiamine (B-1) 100 MG TABLET PO SCH (08:38)
[2021-08-16] MEDS: Folic Acid 1 MG TABLET PO SCH (08:38)
[2021-08-16] MEDS: amLODIPine 5 MG TABLET PO SCH (08:38)
[2021-08-16] MEDS: Metoprolol XL (24 HR) Succ 50 MG TAB.ER.24H PO SCH (08:38)
[2021-08-16] MEDS: Furosemide 40 MG TABLET PO SCH (08:38)
[2021-08-16] MEDS: Vitamin B Complex/Vit C/Vit E 1 EACH TABLET PO SCH (08:39)
[2021-08-16] MEDS: Linezolid 600 MG TABLET PO SCH ×2 (08:39→20:31)
[2021-08-16 16:45] LABS: Influenza A PCR Negative (Negative); Influenza B PCR Negative (Negative); Resp. Syncytial Virus PCR Negative (Negative)
[2021-08-16 16:49] LABS: SARS-CoV-2 by PCR (In House) Negative (Negative)
[2021-08-16] MEDS ORDERED: Furosemide 20 MG/2 ML VIAL IVP ONE (16:57)
[2021-08-17] MEDS: Albumin 25% 25gram/100mL 25 GM/100 ML IV.SOLN IVPB SCH ×3 (00:35→16:44)
[2021-08-17 03:40] LABS: Calcium 8.7 mg/dL (8.6-10.3); Potassium 3.3 mEq/L (3.5-5.1)
[2021-08-17 04:09] LABS: Hematocrit 22.4 % (37.5-50.1); Hemoglobin 7.5 g/dL (12.9-16.9); Mean Corpuscular HGB Conc 33.5 g/dL (31.6-35.5); Mean Corpuscular Hemoglobin 31.8 pg (28.0-33.3); Mean Corpuscular Volume 94.9 fL (83.0-100.0); Mean Platelet Volume 9.4 fL (9.4-12.4); Platelet Count 311 K/mcL (140-400); Red Blood Count 2.36 M/mcL (4.19-5.50); Red Cell Distribution Width 12.6 % (11.5-14.5); White Blood Count 11.3 K/mcL (4.3-11.1)
[2021-08-17 04:20] LABS: INR 2.1
[2021-08-17] MEDS: Insulin LISPRO 300 UNITS/3 ML VIAL SUBQ SCH ×4 (08:00→21:49)
[2021-08-17] MEDS: amLODIPine 5 MG TABLET PO SCH (08:13)
[2021-08-17] MEDS: Furosemide 40 MG TABLET PO SCH (08:13)
[2021-08-17] MEDS: Folic Acid 1 MG TABLET PO SCH (08:13)
[2021-08-17] MEDS: Aspirin Enteric Coated 81 MG Tablet PO SCH (08:13)
[2021-08-17] MEDS: Vitamin B Complex/Vit C/Vit E 1 EACH TABLET PO SCH (08:13)
[2021-08-17] MEDS: Metoprolol XL (24 HR) Succ 50 MG TAB.ER.24H PO SCH (08:13)
[2021-08-17] MEDS: Thiamine (B-1) 100 MG TABLET PO SCH (08:14)
[2021-08-17] MEDS ORDERED: Furosemide 20 MG/2 ML VIAL IVP ONE (10:24)
[2021-08-17 14:43] LABS: Hematocrit 24.3 % (37.5-50.1); Hemoglobin 7.9 g/dL (12.9-16.9)
[2021-08-17] MEDS: [UNRECOGNIZED DRUG - OTHER] IT SCH (14:51)
[2021-08-17] MEDS: Acetaminophen 325 MG TABLET PO PRN (22:03)
[2021-08-18] MEDS: Albumin 25% 25gram/100mL 25 GM/100 ML IV.SOLN IVPB SCH ×3 (00:08→17:33)
[2021-08-18] MEDS: Insulin LISPRO 300 UNITS/3 ML VIAL SUBQ SCH ×4 (08:53→20:05)
[2021-08-18] MEDS: Folic Acid 1 MG TABLET PO SCH (08:59)
[2021-08-18] MEDS: Thiamine (B-1) 100 MG TABLET PO SCH (08:59)
[2021-08-18] MEDS: Vitamin B Complex/Vit C/Vit E 1 EACH TABLET PO SCH (08:59)
[2021-08-18] MEDS: Metoprolol XL (24 HR) Succ 50 MG TAB.ER.24H PO SCH (09:00)
[2021-08-18] MEDS: amLODIPine 5 MG TABLET PO SCH (09:00)
[2021-08-18] MEDS: Furosemide 40 MG TABLET PO SCH (09:00)
[2021-08-18] MEDS: Aspirin Enteric Coated 81 MG Tablet PO SCH (09:00)
[2021-08-18] MEDS: [UNRECOGNIZED DRUG - OTHER] IT SCH (12:07)
[2021-08-18] MEDS: Acetaminophen 325 MG TABLET PO PRN (12:10)
[2021-08-18 16:06] LABS: Hematocrit 23.4 % (37.5-50.1); Hemoglobin 7.8 g/dL (12.9-16.9); Mean Corpuscular HGB Conc 33.3 g/dL (31.6-35.5); Mean Corpuscular Hemoglobin 31.8 pg (28.0-33.3); Mean Corpuscular Volume 95.5 fL (83.0-100.0); Mean Platelet Volume 9.2 fL (9.4-12.4); Platelet Count 316 K/mcL (140-400); Red Blood Count 2.45 M/mcL (4.19-5.50); Red Cell Distribution Width 12.7 % (11.5-14.5); White Blood Count 14.3 K/mcL (4.3-11.1)
[2021-08-18 16:25] LABS: Calcium 9.3 mg/dL (8.6-10.3); Potassium 3.5 mEq/L (3.5-5.1); Potassium 3.7 mEq/L (3.5-5.1)
[2021-08-18] MEDS ORDERED: Furosemide 40 MG/4 ML VIAL IVP ONE (16:48)
[2021-08-18] MEDS: cefTRIAXone 1,000 MG in 0.9 % Sodium Chloride Mini Bag 100 ML IVPB SCH (17:38)
[2021-08-19] MEDS: Albumin 25% 25gram/100mL 25 GM/100 ML IV.SOLN IVPB SCH ×3 (00:48→18:56)
[2021-08-19 01:22] LABS: Bilirubin,Urine Negative (Negative); Blood,Urine Trace (Negative); Clarity,Urine Clear (Clear); Color,Urine Light-Yellow (Yellow); Glucose,Urine (UA) Normal (Normal); Hyaline Casts,Urine Few per lpf (None Seen); Ketones,Urine Negative (Negative); Leukocyte Esterase,Urine Negative (Negative); Mucus,Urine Few per lpf (None-Few); Nitrite,Urine Negative (Negative); Protein,Urine Trace mg/dL (Neg-Trace); RBC,Urine 0-3 per hpf (0-3); Specific Gravity,Urine 1.013 (1.010-1.025); Squamous Epithelial Cell,Urine Few per hpf (None-Few); Urobilinogen,Urine Normal (Normal); WBC,Urine 0-3 per hpf (0-3)
[2021-08-19 05:21] LABS: Hematocrit 23.5 % (37.5-50.1); Hemoglobin 7.5 g/dL (12.9-16.9); Mean Corpuscular HGB Conc 31.9 g/dL (31.6-35.5); Mean Corpuscular Hemoglobin 30.5 pg (28.0-33.3); Mean Corpuscular Volume 95.5 fL (83.0-100.0); Mean Platelet Volume 9.2 fL (9.4-12.4); Platelet Count 313 K/mcL (140-400); Red Blood Count 2.46 M/mcL (4.19-5.50); Red Cell Distribution Width 12.8 % (11.5-14.5); White Blood Count 12.8 K/mcL (4.3-11.1)
[2021-08-19 05:39] LABS: Calcium 9.3 mg/dL (8.6-10.3); Potassium 3.3 mEq/L (3.5-5.1)
[2021-08-19] MEDS: Thiamine (B-1) 100 MG TABLET PO SCH (09:13)
[2021-08-19] MEDS: Insulin LISPRO 300 UNITS/3 ML VIAL SUBQ SCH ×4 (09:13→19:50)
[2021-08-19] MEDS: Furosemide 40 MG TABLET PO SCH (09:15)
[2021-08-19] MEDS: Aspirin Enteric Coated 81 MG Tablet PO SCH (09:15)
[2021-08-19] MEDS: cefTRIAXone 1,000 MG in 0.9 % Sodium Chloride Mini Bag 100 ML IVPB SCH (09:15)
[2021-08-19] MEDS: Metoprolol XL (24 HR) Succ 50 MG TAB.ER.24H PO SCH (09:15)
[2021-08-19] MEDS: Folic Acid 1 MG TABLET PO SCH (09:15)
[2021-08-19] MEDS: Vitamin B Complex/Vit C/Vit E 1 EACH TABLET PO SCH (09:15)
[2021-08-19] MEDS: amLODIPine 5 MG TABLET PO SCH (09:15)
[2021-08-19] MEDS: [UNRECOGNIZED DRUG - OTHER] IT SCH (13:24)
[2021-08-20] MEDS: Albumin 25% 25gram/100mL 25 GM/100 ML IV.SOLN IVPB SCH ×3 (00:56→17:12)
[2021-08-20 05:49] LABS: Hematocrit 23.3 % (37.5-50.1); Hemoglobin 7.7 g/dL (12.9-16.9); Mean Corpuscular Hemoglobin 31.7 pg (28.0-33.3); Mean Corpuscular Volume 95.9 fL (83.0-100.0); Mean Platelet Volume 9.7 fL (9.4-12.4); Platelet Count 272 K/mcL (140-400); Red Blood Count 2.43 M/mcL (4.19-5.50); Red Cell Distribution Width 12.8 % (11.5-14.5); White Blood Count 12.1 K/mcL (4.3-11.1)
[2021-08-20 06:12] LABS: Calcium 9.5 mg/dL (8.6-10.3); Potassium 3.4 mEq/L (3.5-5.1)
[2021-08-20] MEDS: Furosemide 40 MG TABLET PO SCH (07:50)
[2021-08-20] MEDS: cefTRIAXone 1,000 MG in 0.9 % Sodium Chloride Mini Bag 100 ML IVPB SCH (07:50)
[2021-08-20] MEDS: Thiamine (B-1) 100 MG TABLET PO SCH (07:50)
[2021-08-20] MEDS: amLODIPine 5 MG TABLET PO SCH (07:50)
[2021-08-20] MEDS: Aspirin Enteric Coated 81 MG Tablet PO SCH (07:51)
[2021-08-20] MEDS: Metoprolol XL (24 HR) Succ 50 MG TAB.ER.24H PO SCH (07:51)
[2021-08-20] MEDS: Vitamin B Complex/Vit C/Vit E 1 EACH TABLET PO SCH (07:51)
[2021-08-20] MEDS: Folic Acid 1 MG TABLET PO SCH (07:51)
[2021-08-20] MEDS: Insulin LISPRO 300 UNITS/3 ML VIAL SUBQ SCH ×4 (07:52→20:45)
[2021-08-20] MEDS: [UNRECOGNIZED DRUG - OTHER] IT SCH (12:23)
[2021-08-20] MEDS ORDERED: 0.9 % Sodium Chloride 250 ML ONE (13:13)
[2021-08-20 13:26] LABS: Adenovirus Not Detected (Not Detect); Bordetella Pertussis Not Detected (Not Detect); Chlamydophila pneumoniae Not Detected (Not Detect); Coronavirus 229E Not Detected (Not Detect); Coronavirus HKU1 Not Detected (Not Detect); Coronavirus NL63 Not Detected (Not Detect); Coronavirus OC43 Not Detected (Not Detect); Human Metapneumovirus Not Detected (Not Detect); Human Rhinovirus/Enterovirus Not Detected (Not Detect); Influenza A Subtype 2009 H1 Not Detected (Not Detect); Influenza B Not Detected (Not Detect); Mycoplasma pneumoniae Not Detected (Not Detect); Parainfluenza Virus 1 Not Detected (Not Detect); Parainfluenza Virus 2 Not Detected (Not Detect); Parainfluenza Virus 3 Not Detected (Not Detect); Parainfluenza Virus 4 Not Detected (Not Detect); Respiratory Syncytial Virus Not Detected (Not Detect); SARS-CoV-2 Not Detected (Not Detect)
[2021-08-20] MEDS ORDERED: Furosemide 40 MG/4 ML VIAL IVP ONE (17:21)
[2021-08-20] MEDS ORDERED: Fluconazole 100 MG TABLET PO ONE (17:22)
[2021-08-21] MEDS: Albumin 25% 25gram/100mL 25 GM/100 ML IV.SOLN IVPB SCH ×2 (00:31→09:05)
[2021-08-21 06:48] LABS: Hematocrit 25.5 % (37.5-50.1); Hemoglobin 8.3 g/dL (12.9-16.9)
[2021-08-21 06:56] VITALS: BP 157/84; PULSE 87; TEMP 97.7; O2SAT 94
[2021-08-21] MEDS: Insulin LISPRO 300 UNITS/3 ML VIAL SUBQ SCH (07:01)
[2021-08-21 07:04] LABS: BUN/Creatinine Ratio 41 (6-26); Blood Urea Nitrogen 54 mg/dL (8-23); Calcium 9.7 mg/dL (8.6-10.3); Carbon Dioxide 26 mEq/L (23-29); Chloride 104 mEq/L (98-107); Glucose 150 mg/dL (70-105); Osmolality,Calculated 310 (280-300); Potassium 3.3 mEq/L (3.5-5.1); Sodium 141 mEq/L (136-145); eGFR For African Americans > 60 (> 60); eGFR For Non-African Americans 53 (> 60)
[2021-08-21] MEDS: Folic Acid 1 MG TABLET PO SCH (09:02)
[2021-08-21] MEDS: amLODIPine 5 MG TABLET PO SCH (09:02)
[2021-08-21] MEDS: Thiamine (B-1) 100 MG TABLET PO SCH (09:02)
[2021-08-21] MEDS: Aspirin Enteric Coated 81 MG Tablet PO SCH (09:03)
[2021-08-21] MEDS: Metoprolol XL (24 HR) Succ 50 MG TAB.ER.24H PO SCH (09:03)
[2021-08-21] MEDS: Furosemide 40 MG TABLET PO SCH (09:03)
[2021-08-21] MEDS: Vitamin B Complex/Vit C/Vit E 1 EACH TABLET PO SCH (09:03)
[2021-08-21] MEDS: cefTRIAXone 1,000 MG in 0.9 % Sodium Chloride Mini Bag 100 ML IVPB SCH (09:05)
== END 2021-08-21 09:47 | DRG 871 ==
LOC: 3BNU 17:39 → EMEROOARM 17:39 → SUATTDRO 22:32 → 3BNU 23:55 → SUATTDRO 08-04 19:54
PROVIDERS: ADMIT Internal Medicine; ATTEND Registered Nurse

== ENCOUNTER 2021-08-22 09:08 | Inpatient (IN) ==
[2021-08-22 10:35] LABS: Basophils % 0.3 %; Eosinophils # 0.2 K/mcL (0.0-0.6); Hematocrit 24.9 % (37.5-50.1); Immature Granulocytes % 0.6 % (0-4); Immature Platelets 1.7 % (1.1-6.1); Lymphocytes % 10.8 %; Mean Corpuscular HGB Conc 32.1 g/dL (31.6-35.5); Mean Corpuscular Hemoglobin 30.3 pg (28.0-33.3); Mean Corpuscular Volume 94.3 fL (83.0-100.0); Mean Platelet Volume 9.4 fL (9.4-12.4); Monocytes # 0.7 K/mcL (0.0-1.3); Monocytes % 7.7 %; Platelet Count 441 K/mcL (140-400); Red Blood Count 2.64 M/mcL (4.19-5.50); Red Cell Distribution Width 13.4 % (11.5-14.5); Segmented Neutrophils % 78.6 %; White Blood Count 9.6 K/mcL (4.3-11.1)
[2021-08-22 10:46] LABS: Alanine Aminotransferase 7 Units/L (7-52); Albumin 4.5 g/dL (3.5-5.7); Albumin/Globulin Ratio 1.6 (1.1-2.2); Alkaline Phosphatase 73 Units/L (34-104); Aspartate Amino Transferase 15 Units/L (13-39); BUN/Creatinine Ratio 44 (6-26); Bilirubin,Total 0.7 mg/dL (0.3-1.0); Blood Urea Nitrogen 55 mg/dL (8-23); Calcium 9.6 mg/dL (8.6-10.3); Carbon Dioxide 25 mEq/L (23-29); Chloride 106 mEq/L (98-107); Globulin 2.9 g/dL (2.4-3.5); Glucose 155 mg/dL (70-105); Osmolality,Calculated 312 (280-300); Potassium 3.6 mEq/L (3.5-5.1); Sodium 142 mEq/L (136-145); Total Protein 7.4 g/dL (6.4-8.9); eGFR For African Americans > 60 (> 60); eGFR For Non-African Americans 56 (> 60)
[2021-08-22 10:57] LABS: Platelet Estimate Increased (Normal)
[2021-08-22 11:02] LABS: Neutrophils # 7.6 K/mcL (1.6-8.9)
[2021-08-22 12:32] LABS: Bilirubin,Urine Negative (Negative); Blood,Urine Negative (Negative); Clarity,Urine Clear (Clear); Color,Urine Yellow (Yellow); Glucose,Urine (UA) Normal (Normal); Hyaline Casts,Urine Few per lpf (None Seen); Ketones,Urine Negative (Negative); Leukocyte Esterase,Urine Negative (Negative); Mucus,Urine Few per lpf (None-Few); Nitrite,Urine Negative (Negative); Protein,Urine 30 mg/dL (Neg-Trace); RBC,Urine 0-3 per hpf (0-3); Specific Gravity,Urine 1.015 (1.010-1.025); Squamous Epithelial Cell,Urine Few per hpf (None-Few); Urobilinogen,Urine Normal (Normal); WBC,Urine 0-3 per hpf (0-3)
[2021-08-22] MEDS ORDERED: Furosemide 40 MG/4 ML VIAL IVP ONE (13:24)
[2021-08-22 14:05] LABS: VBG HCO3 29 mEq/L (21-27); VBG PCO2 67 mmHg (41-51); VBG PH 7.25 pH Units (7.32-7.42); VBG PO2 147 mmHg (25-50)
[2021-08-22] MEDS ORDERED: methylPREDNISolone 125 MG/2 ML VIAL IVP ONE (18:16)
[2021-08-22] MEDS ORDERED: Acetaminophen 325 MG TABLET PO PRN (18:19)
[2021-08-22] MEDS ORDERED: Ondansetron 4 MG/2 ML VIAL IVP PRN (18:19)
[2021-08-22] MEDS ORDERED: *HR* Dextrose 50 % in Water (Syg) 50 ML SYRINGE IVP PRN (18:40)
[2021-08-22] MEDS ORDERED: D5% in Water 1,000 ML IVC PRN (18:40)
[2021-08-22] MEDS ORDERED: Dextrose Gel 15 GM/37.5 ML TUBE PO PRN ×2 (18:40)
[2021-08-22] MEDS ORDERED: Azithromycin 500 MG in 0.9 % Sodium Chloride 250 ML IVPB SCH (19:00)
[2021-08-22] MEDS: Ipratropium/Albuterol Neb 3 ML IH SCH ×2 (19:51→23:05)
[2021-08-22] MEDS: Insulin LISPRO 300 UNITS/3 ML VIAL SUBQ SCH ×2 (19:52→20:30)
[2021-08-22] MEDS ORDERED: *HR* Labetalol 20 MG/4 ML SYRINGE IVP ONE (21:09)
[2021-08-22] MEDS: Nystatin POWDER 30 GM BOTTLE TP SCH (21:28)
[2021-08-22 22:17] LABS: Influenza A PCR Negative (Negative); Influenza B PCR Negative (Negative); Resp. Syncytial Virus PCR Negative (Negative)
[2021-08-22 22:22] LABS: SARS-CoV-2 by PCR (In House) Negative (Negative)
[2021-08-22] MEDS: MethylPREDNISolone 40 MG/ML VIAL IVP SCH (22:56)
[2021-08-23 03:00] LABS: Hematocrit 24.1 % (37.5-50.1); Mean Corpuscular HGB Conc 33.2 g/dL (31.6-35.5); Mean Corpuscular Hemoglobin 31.6 pg (28.0-33.3); Mean Corpuscular Volume 95.3 fL (83.0-100.0); Platelet Count 357 K/mcL (140-400); Red Blood Count 2.53 M/mcL (4.19-5.50); Red Cell Distribution Width 13.2 % (11.5-14.5); White Blood Count 7.8 K/mcL (4.3-11.1)
[2021-08-23 03:08] LABS: VBG HCO3 26 mEq/L (21-27); VBG PCO2 43 mmHg (41-51); VBG PH 7.39 pH Units (7.32-7.42); VBG PO2 110 mmHg (25-50)
[2021-08-23 03:21] LABS: BUN/Creatinine Ratio 41 (6-26); Blood Urea Nitrogen 48 mg/dL (8-23); Calcium 9.3 mg/dL (8.6-10.3); Carbon Dioxide 25 mEq/L (23-29); Chloride 108 mEq/L (98-107); Glucose 154 mg/dL (70-105); Osmolality,Calculated 314 (280-300); Potassium 3.8 mEq/L (3.5-5.1); Sodium 144 mEq/L (136-145); eGFR For African Americans > 60 (> 60); eGFR For Non-African Americans > 60 (> 60)
[2021-08-23] MEDS: Ipratropium/Albuterol Neb 3 ML IH SCH ×6 (03:53→23:18)
[2021-08-23] MEDS: amLODIPine 5 MG TABLET PO SCH (09:15)
[2021-08-23] MEDS: Metoprolol XL (24 HR) Succ 50 MG TAB.ER.24H PO SCH (09:15)
[2021-08-23] MEDS: Insulin LISPRO 300 UNITS/3 ML VIAL SUBQ SCH ×4 (09:15→21:27)
[2021-08-23] MEDS: Nystatin POWDER 30 GM BOTTLE TP SCH ×3 (11:03→21:27)
[2021-08-23] MEDS: MethylPREDNISolone 40 MG/ML VIAL IVP SCH ×2 (11:03→15:24)
[2021-08-23] MEDS: Furosemide 40 MG/4 ML VIAL IVP SCH ×2 (11:03→21:27)
[2021-08-23] MEDS: Budesonide/Formoterol 160/4.5 1 PUFF INH IH SCH ×2 (16:00→19:50)
[2021-08-23 16:02] LABS: ABG Base Excess -1 mEq/L (-2 to 3); ABG HCO3 24 mEq/L (21-27); ABG Oxygen Saturation 89 % (95-98); ABG PCO2 39 mmHg (35-45); ABG PO2 57 mmHg (85-104); ABG TCO2 25 mEq/L (20-26)
[2021-08-24] MEDS: MethylPREDNISolone 40 MG/ML VIAL IVP SCH ×4 (00:04→23:49)
[2021-08-24] MEDS: Ipratropium/Albuterol Neb 3 ML IH SCH ×5 (03:44→21:08)
[2021-08-24 05:50] LABS: BUN/Creatinine Ratio 41 (6-26); Blood Urea Nitrogen 51 mg/dL (8-23); Calcium 9.5 mg/dL (8.6-10.3); Carbon Dioxide 25 mEq/L (23-29); Chloride 103 mEq/L (98-107); Glucose 321 mg/dL (70-105); Osmolality,Calculated 314 (280-300); Potassium 3.5 mEq/L (3.5-5.1); Sodium 139 mEq/L (136-145); eGFR For African Americans > 60 (> 60); eGFR For Non-African Americans 57 (> 60)
[2021-08-24] MEDS: Insulin LISPRO 300 UNITS/3 ML VIAL SUBQ SCH ×4 (09:21→21:40)
[2021-08-24] MEDS: Furosemide 40 MG/4 ML VIAL IVP SCH ×2 (09:22→21:40)
[2021-08-24] MEDS: Metoprolol XL (24 HR) Succ 50 MG TAB.ER.24H PO SCH (09:22)
[2021-08-24] MEDS: amLODIPine 5 MG TABLET PO SCH (09:22)
[2021-08-24] MEDS: Nystatin POWDER 30 GM BOTTLE TP SCH ×3 (09:24→21:41)
[2021-08-24] MEDS: Budesonide/Formoterol 160/4.5 1 PUFF INH IH SCH ×2 (10:35→21:08)
[2021-08-24 10:38] LABS: Hematocrit 23.8 % (37.5-50.1); Hemoglobin 7.7 g/dL (12.9-16.9); Mean Corpuscular HGB Conc 32.4 g/dL (31.6-35.5); Mean Corpuscular Hemoglobin 30.6 pg (28.0-33.3); Mean Corpuscular Volume 94.4 fL (83.0-100.0); Mean Platelet Volume 9.7 fL (9.4-12.4); Platelet Count 338 K/mcL (140-400); Red Blood Count 2.52 M/mcL (4.19-5.50); Red Cell Distribution Width 13.2 % (11.5-14.5); White Blood Count 10.6 K/mcL (4.3-11.1)
[2021-08-25] MEDS: Ipratropium/Albuterol Neb 3 ML IH SCH ×3 (00:08→08:17)
[2021-08-25] MEDS: Budesonide/Formoterol 160/4.5 1 PUFF INH IH SCH (08:18)
[2021-08-25] MEDS: MethylPREDNISolone 40 MG/ML VIAL IVP SCH (09:08)
[2021-08-25] MEDS: amLODIPine 5 MG TABLET PO SCH (09:09)
[2021-08-25] MEDS: Furosemide 40 MG/4 ML VIAL IVP SCH (09:09)
[2021-08-25] MEDS: Metoprolol XL (24 HR) Succ 50 MG TAB.ER.24H PO SCH (09:10)
[2021-08-25] MEDS: Nystatin POWDER 30 GM BOTTLE TP SCH (09:10)
[2021-08-25] MEDS: Insulin LISPRO 300 UNITS/3 ML VIAL SUBQ SCH (09:24)
[2021-08-25 10:48] VITALS: BP 143/79; PULSE 88; TEMP 98.2; O2SAT 93
== END 2021-08-25 12:27 | disposition home health service (06) | DRG 190 ==
LOC: EMEROOARM 09:08 → 2NENU 09:08 → SUATTDRO 18:33 → 2NENU 20:04 → 3ANU 08-24 05:56
PROVIDERS: ADMIT Family Medicine; ATTEND Internal Medicine